=== PATIENT | female | born 1985 ===

== ENCOUNTER 2017-10-26 21:19 | Emergency (ER) | payer MEDICAID ==
[2017-10-26 22:05] VITALS: BP 122/62; PULSE 85; RESP 16; TEMP 98; O2SAT 99
--- NOTE | 2017-10-26 22:21 | ED PDOC ---
Lower Extremity Pain/Injury Time Seen by Provider: 10/26/17 22:19 Chief Complaint (Nursing): Lower Extremity Problem/Injury Chief Complaint (Provider): ankle injury History Per: Patient (32 y/o female here with right ankle injury that occurred few days prior when she tripped. Was seen at [facility] [place] with [place] xrys. Did not taking any medications for pain.) Past Medical History Reviewed: Historical Data, Nursing Documentation, Vital Signs Vital Signs: Last Vital Signs Temp 98.0 F 10/26/17 22:02 Pulse 85 10/26/17 22:02 Resp 16 10/26/17 22:02 BP 122/62 10/26/17 22:02 Pulse Ox 99 10/26/17 22:02 - Family History Family History: States: No Known Family Hx - Home Medications Home Medications: Ambulatory Orders Medication Instructions Recorded Naproxen 1 tab PO Q12 PRN #14 tab 10/26/17 - Allergies Allergies/Adverse Reactions: Allergies Allergy/AdvReac Type Severity Reaction Status Date / Time lactose Allergy URTICARIA Verified 10/26/17 22:02 latex Allergy ANAPHYLAXIS Verified 10/26/17 22:02 Review of Systems ROS Statement: Except As Marked, All Systems Reviewed And Found Negative Musculoskeletal: Positive for: Other (ankle pain) Physical Exam - Reviewed Nursing Documentation Reviewed: Yes Vital Signs Reviewed: Yes - Physical Exam Appears: Positive for: Well, Non-toxic, No Acute Distress Head Exam: Positive for: ATRAUMATIC, NORMAL INSPECTION, NORMOCEPHALIC Skin: Positive for: Normal Color, Warm, DRY Eye Exam: Positive for: EOMI, Normal appearance, PERRL ENT: Positive for: Normal ENT Inspection Neck: Positive for: Normal, Painless ROM Cardiovascular/Chest: Positive for: Regular Rate, Rhythm Respiratory: Positive for: CNT, Normal Breath Sounds Gastrointestinal/Abdominal: Positive for: Normal Exam, Bowel Sounds, Soft Back: Positive for: Normal Inspection Extremity: Positive for: Normal ROM, Swelling (swelling lateral malleoulus) Neurologic/Psych: Positive for: Alert, Oriented - ECG O2 Sat by Pulse Oximetry: 99 - Progress ED Course And Treament: xry of foot: no fx xry of ankle right: no fx acetaminophen 975 mg x 1 dose Placed in air cast/ and given crutch instructions Disposition - Clinical Impression Clinical Impression: Ankle sprain - Patient ED Disposition Is Patient to be Admitted: No - Disposition Referrals: Podiatry Clinic [Outside] Disposition: Routine/Home Disposition Time: 22:47 Condition: FAIR Additional Instructions: PLEASE AVOID WEIGHT BEARING X 3 DAYS IF POSSIBLE APPLY ICE/ELEVATE AND TAKE NSAID MEDICATION TO ASSIST IN RECOVERY. Prescriptions: Naproxen 1 tab PO Q12 PRN #14 tab PRN Reason: Pain, Moderate (4-7) Instructions: Ankle Sprain (ED), Ankle Stirrup Splint (ED) Forms: [facility] (Amharic), [facility] ED School/Work Excuse
[2017-10-26] MEDS ORDERED: Acetaminophen 160 mg/5 ml UD ONE (22:25)
--- NOTE | 2017-10-27 09:06 | RAD ---
PROCEDURE: Radiographs of the right calcaneus/hindfoot. HISTORY: heel pain COMPARISON: Correlation made with concurrent radiographs of the right ankle TECHNIQUE: Frontal and lateral radiographs of the calcaneus. FINDINGS: No fracture or joint dislocation. No focal lesion. There is a small posterior calcaneal enthesophyte. IMPRESSION: No definitive radiographic evidence of acute displaced fracture right calcaneus or hindfoot. If symptoms persist or occult fracture suspected clinically consider repeat radiographs in 5-10 days as most fractures should become radiographically evident in this timeframe. Alternately, MRI could be obtained if necessary. Small posterior calcaneal enthesophyte.
--- NOTE | 2017-10-27 09:08 | RAD ---
PROCEDURE: Right Ankle Radiographs. HISTORY: pain COMPARISON: Correlation made with concurrent radiographs of the right foot and calcaneus FINDINGS: BONES: Normal. No fracture. . Small posterior calcaneal enthesophyte JOINTS: Normal. No osteoarthritis. Ankle mortise maintained. Talar dome intact SOFT TISSUES: There appears to be mild soft tissue swelling overlying the lateral malleolus OTHER FINDINGS: None. IMPRESSION: No evidence of acute displaced fracture nor dislocation. Small posterior calcaneal enthesophyte. There appears be mild diffuse soft tissue swelling overlying the lateral malleolus
--- NOTE | 2017-10-27 09:10 | RAD ---
PROCEDURE: Right Foot Radiographs. HISTORY: foot pain COMPARISON: Correlation made with concurrent radiographs of the right calcaneus and right ankle FINDINGS: BONES: Normal. No fracture. Small posterior calcaneal enthesophyte. JOINTS: Minimal hallux valgus deformity. SOFT TISSUES: Mild soft tissue swelling overlying the lateral malleolus OTHER FINDINGS: None. IMPRESSION: Normal right foot radiographs. Tiny posterior calcaneal enthesophyte
== END 2017-10-26 23:09 | disposition home or self-care (01) ==
LOC: H.ER 21:19
DX: S93.401A Sprain of unspecified ligament of right ankle, initial encounter (principal); W19.XXXA Unspecified fall, initial encounter; Y92.89 Other specified places as the place of occurrence of the external cause